=== PATIENT | female | born 2000 | race Caucasian/White ===

== ENCOUNTER 2019-11-19 05:16 | Emergency (ER) | payer BC, OTHER ==
[2019-11-19 05:46] VITALS: TEMP 98.6
[2019-11-19] MEDS ORDERED: KETOROLAC TROMETHAMINE INJ 30 MG/ML VIAL IM ONE (06:37)
[2019-11-19] MEDS ORDERED: CYCLOBENZAPRINE HCL 5 MG TAB PO ONE (06:38)
--- NOTE | 2019-11-19 06:41 | ED.PDOC ---
History of Present Illness - General Chief Complaint: Back Pain or Injury Stated Complaint: lower back pain since worse tonight Time Seen by Provider: 11/19/19 06:29 Source: patient, RN notes reviewed, Vital Signs reviewed, family - Friend Exam Limitations: no limitations - History of Present Illness Initial Comments: Patient is a 19-year-old white female who presents with complaints of low back pain x4 months. Pain is worse when she exerts herself by walking or has to stand long periods of time. Better when she rests or immobilizes it. Patient has not noticed any fevers or chills during this period of time. The pain is constant. It waxes and wanes. It is moderate in intensity. It is cramping and stabbing in nature. It does not radiate. Timing/Duration: other - 4 months Quality/Severity: moderate, sharpness, other - Cramping Back Pain Location: lumbar spine, paraspinous muscles Back Pain Radiation: other - No pain radiation Method of Injury/Prior Injury: unknown Improving Factors: immobilization, rest Worsening Factors: movement, other - Walking or standing Associated Symptoms: denies symptoms Allergies/Adverse Reactions: Allergies NO KNOWN ALLERGY Allergy (Verified 11/19/19 05:27) Home Medications: Ambulatory Orders Cyclobenzaprine HCl [Flexeril] 10 mg PO TID #21 tab 11/19/19 Tramadol HCl [Ultram] 50 mg PO Q6H #12 tab 11/19/19 Tramadol HCl [Ultram] 50 mg PO Q6H #12 tab 11/19/19 Review of Systems - Review of Systems Constitutional: States: no symptoms reported, see HPI EENTM: States: no symptoms reported Respiratory: States: no symptoms reported Cardiology: States: no symptoms reported Gastrointestinal/Abdominal: States: no symptoms reported Genitourinary: States: no symptoms reported. Denies: discharge, dysuria, frequency, hematuria Musculoskeletal: States: see HPI, back pain - Lumbar spine Skin: States: no symptoms reported Neurological: States: no symptoms reported Endocrine: States: no symptoms reported Hematologic/Lymphatic: States: no symptoms reported All other Systems: Reviewed and Negative Past Medical History (General) - Patient Medical History Hx Seizures: No Hx Stroke: No Hx Dementia: No Hx Asthma: No Hx of COPD: No Hx Cardiac Disorders: No Hx Congestive Heart Failure: No Hx Pacemaker: No Hx Hypertension: No Hx Thyroid Disease: No Hx Diabetes: No Hx Gastroesophageal Reflux: No Hx Renal Disease: No Hx Cancer: No Hx of HIV: No Hx Hepatitis C: No Hx MRSA: No Surgical History: no surgical history - Vaccination History Hx Tetanus, Diphtheria Vaccination: No Hx Influenza Vaccination: No Hx Pneumococcal Vaccination: No Immunizations Up to Date: No - Social History Hx Tobacco Use: Yes Hx Chewing Tobacco Use: No Hx Alcohol Use: Yes Hx Substance Use: Yes Hx Substance Use Treatment: No Hx Depression: No Feels Threatened In Home Enviroment: No Hx Physical Abuse: No Hx Emotional Abuse: No Hx Suspected Abuse: No - Activities of Daily Living Hospice Agency (if applicable):: None - Female History Patient is a Female of Child Bearing Age (10 -59 yrs old): Yes Patient : No Family Medical History - Family History Mother Family History: Unknown Physical Exam - Physical Exam General Appearance: Alert, Anxious, Comfortable, Well Developed, Well Groomed, Well Hydrated, Well Nourished Eyes, Ears, Nose, Throat Exam: PERRL/EOMI, normal ENT inspection, pharynx normal Neck Exam: non-tender, full range of motion, normal alignment, normal inspection Cardiovascular/Respiratory: regular rate, rhythm, no M/R/G, normal peripheral pulses, no JVD Peripheral Pulses: radial,right: 2+, radial,left: 2+ Gastrointestinal/Abdominal: normal bowel sounds, non tender, soft Back Exam: no CVA tenderness, no vertebral tenderness, decreased range of motion, muscle spasm Extremity Exam: no evidence of injury, normal range of motion, non-tender, other - Patient's hands are stained red from darcy dye. Neurologic: banquet steward II-XII nml as tested, no motor/sensory deficits, alert, normal mood/affect, oriented x 3 Skin Exam: normal color, warm/dry Progress - Progress Progress: Differential diagnosis: UTI, lumbosacral strain, lumbar radiculopathy, sciatica among others. 11/19/19 06:42 Patient is improving after IM Toradol and Flexeril. Plan on discharge home with prescription for same. I discussed this plan of care with the patient and she voices understanding and agreement. Shahzad Ivey M.D. #[id number] - Results/Orders Results/Orders: Laboratory Results - last 24 hr 11/19/19 11/19/19 05:32 05:32 Urine Color Yellow Urine Appearance Cloudy Urine pH 5.0 Ur Specific [place] >= 1.030 Urine Protein Negative Urine Glucose (UA) Negative Urine Ketones Negative Urine Blood Trace-lysed H Urine Nitrite Negative Urine Bilirubin Negative Urine Urobilinogen 0.2 Ur Leukocyte Esterase Negative Urine RBC 0 Urine WBC 3-5 H Ur Epithelial Cells 5-10 Urine Bacteria Rare Urine HCG, Qual Negative Vital Signs 11/19/19 11/19/19 05:25 06:16 Temperature 98.6 F Pulse Rate [ 81 84 pulse ox] Respiratory 18 18 Rate Blood Pressure 119/71 115/71 [Left Arm] O2 Sat by Pulse 996 H 99 Oximetry Departure - Departure Clinical Impression: Lumbar back sprain Time of Disposition: 06:44 Disposition: Discharge to Home or Self Care Condition: Good Departure Forms: ED Discharge - Pt. Copy, Patient Portal Self Enrollment Instructions: DI for Low Back Pain, DI for Back Strain or Sprain Diet: resume usual diet Activity: increase activity as tolerated, walking as tolerated Prescriptions: Cyclobenzaprine HCl [Flexeril] 10 mg PO TID #21 tab Tramadol HCl [Ultram] 50 mg PO Q6H #12 tab Tramadol HCl [Ultram] 50 mg PO Q6H #12 tab Home Medications: Ambulatory Orders Cyclobenzaprine HCl [Flexeril] 10 mg PO TID #21 tab 11/19/19 Tramadol HCl [Ultram] 50 mg PO Q6H #12 tab 11/19/19 Tramadol HCl [Ultram] 50 mg PO Q6H #12 tab 11/19/19
[2019-11-19 07:04] VITALS: BP 131/97; O2SAT 98
== END 2019-11-19 07:04 | disposition home or self-care (01) ==
LOC: ER 05:16
DX: S33.5XXA Sprain of ligaments of lumbar spine, initial encounter (principal); F17.200 Nicotine dependence, unspecified, uncomplicated; X58.XXXA Exposure to other specified factors, initial encounter; Y92.9 Unspecified place or not applicable
CPT/HCPCS: 81001; 81025; J1885